=== PATIENT | male | born 1940 | race Caucasian/White ===

== ENCOUNTER → 2017-03-28 | Outpatient (CLI) | payer MEDICARE | END | disposition home or self-care (01) | LOC: CVU 07:02 | PROVIDERS: ATTEND Internal Medicine Cardiovascular Disease | DX: I87.2 Venous insufficiency (chronic) (peripheral) (principal); I10 Essential (primary) hypertension | CPT/HCPCS: 93306; 93970 ==

== ENCOUNTER → 2019-06-24 | Outpatient (CLI) | payer MEDICARE ==
[~2019-06-24] MED LIST: ALIEVE PO; ATOR40TA78 PO; CARDIA XT PO; CLON0.3T47 PO; FOLI-17 PO; LISI-170 PO; REGADENOSON 0.4 MG/5 ML SYRINGE ONE; TRAZ-137 PO; TRIA1TAB5 PO; iron PO; magnesium PO; potassium PO
== END | disposition home or self-care (01) ==
LOC: CFH 07:50
PROVIDERS: ATTEND Internal Medicine Cardiovascular Disease
DX: Z01.810 Encounter for preprocedural cardiovascular examination (principal); I45.4 Nonspecific intraventricular block; I10 Essential (primary) hypertension; E78.5 Hyperlipidemia, unspecified
CPT/HCPCS: 78452; 93017; A9502; J2785